=== PATIENT | female | born 2005 | race Caucasian/White ===

== ENCOUNTER → 2024-09-13 | Outpatient (REF) | payer OTHER, BC ==
[2024-09-13 16:46] LABS: BASO % 0.7 % (0.0-1.0); EOS # 0.1 10^3/uL (0.0-0.5); EOS % 1.2 % (0.0-3.0); HEMATOCRIT 43.9 % (36.0-47.0); LYMPH # 1.7 10^3/uL (1.5-5.0); LYMPH % 42.1 % (24.0-44.0); MEAN CORPUSCULAR HEMOGLOBIN 27.1 pg (27.0-33.0); MEAN CORPUSCULAR HGB CONC 31.9 g/dl (32.0-36.5); MEAN CORPUSCULAR VOLUME 84.9 fl (80.0-96.0); MONO # 0.3 10^3/uL (0.0-0.8); MONO % 8.5 % (2.0-8.0); NEUTROPHILS # 1.9 10^3/uL (1.5-8.5); NEUTROPHILS % 47.5 % (36.0-66.0); PLATELET COUNT, AUTOMATED 392 10^3/uL (150-450); RED BLOOD COUNT 5.17 10^6/uL (4.00-5.40)
[2024-09-13 17:17] LABS: CHOLESTEROL RISK RATIO 2.32 (<5); HDL CHOLESTEROL 74.1 MG/DL (>40); LDL CHOLESTEROL 89.5 MG/DL (<100); NON-HDL-C 97.9 MG/DL; PERCENT SATURATION 38.1 % (13.2-45.0)
[2024-09-13 17:20] LABS: THYROID STIMULATING HORMONE 1.732 uIU/ML (0.48-4.17); TOTAL 25(OH) VITAMIN D 9.1 NG/ML (20.0-100.0)
== END ==
LOC: M LAB REF 16:18
PROVIDERS: ATTEND Pediatrics
DX: Z68.1 Body mass index [BMI] 19.9 or less, adult (principal); R63.6 Underweight; N92.0 Excessive and frequent menstruation with regular cycle; Z13.220 Encounter for screening for lipoid disorders; E55.9 Vitamin D deficiency, unspecified